=== PATIENT | male | born 1960 | race Caucasian/White ===

== ENCOUNTER 2023-06-09 07:33 | Day surgery (SDC) | payer BC ==
[~2023-06-09 07:33] MED LIST: Lactated Ringers 1,000 ML IV SCH
[2023-06-09] MEDS ORDERED: propofoL 50 ML ONE ×2 (09:18→09:29)
[2023-06-09] MEDS ORDERED: Lactated Ringers 1,000 ML IV SCH (10:00)
== END 2023-06-09 10:30 | disposition home or self-care (01) ==
LOC: MW.SDS 07:33
PROVIDERS: ATTEND Surgery
DX: K29.50 Unspecified chronic gastritis without bleeding (principal); F41.9 Anxiety disorder, unspecified; K21.9 Gastro-esophageal reflux disease without esophagitis; I10 Essential (primary) hypertension; E78.00 Pure hypercholesterolemia, unspecified; R55 Syncope and collapse; F10.20 Alcohol dependence, uncomplicated; F17.210 Nicotine dependence, cigarettes, uncomplicated; Z98.890 Other specified postprocedural states
CPT/HCPCS: 43239; J2704; J7120; 00731